=== PATIENT | male | born 1945 | race Caucasian/White ===

== ENCOUNTER 2019-03-15 05:16 | Emergency (ER) | payer MEDICARE, OTHER ==
[~2019-03-15] VITALS: Ht 177.8 cm; Wt 70.8 kg
[2019-03-15] MEDS ORDERED: cloNIDine HCL 0.1 MG TAB PO ONE (05:45)
[2019-03-15] MEDS ORDERED: HYDROcodone-ACET 5/325MG TAB PO ONE (07:15)
[2019-03-15 07:36] VITALS: BP 145/75
== END 2019-03-15 07:49 | disposition home or self-care (01) ==
LOC: ER 05:16
DX: S00.03XA Contusion of scalp, initial encounter (principal); S16.1XXA Strain of muscle, fascia and tendon at neck level, initial encounter; S46.911A Strain of unspecified muscle, fascia and tendon at shoulder and upper arm level, right arm, initial encounter; I10 Essential (primary) hypertension; E78.5 Hyperlipidemia, unspecified; Z90.49 Acquired absence of other specified parts of digestive tract; Z88.0 Allergy status to penicillin; W18.30XA Fall on same level, unspecified, initial encounter; Y93.01 Activity, walking, marching and hiking; Y92.481 Parking lot as the place of occurrence of the external cause; Y99.8 Other external cause status
CPT/HCPCS: 70450; 72125; 73030